=== PATIENT | male | born 1995 | race Caucasian/White ===

== ENCOUNTER 2021-11-10 09:54 | Emergency (ER) | payer MEDICAID, SELFPAY ==
--- NOTE | ~2021-11-10 | XR_ITS ---
EXAMINATION: XR RIBS, RIGHT CLINICAL INFORMATION: Right rib pain. COMPARISON: None TECHNIQUE: 3 views of the right ribs were obtained along with a PA view of the chest. A skin marker was placed over the anteroinferior right ribs. FINDINGS: Lungs are clear. No consolidation, pneumothorax, or pleural effusion. The cardiomediastinal silhouette and pulmonary vasculature are normal. Osseous structures are unremarkable. Ribs are intact. No fractures are identified. XR/XR ribs RT min 3V w CXR1V IMPRESSION: Unremarkable examination.
[2021-11-10 11:03] VITALS: BP 148/82; PULSE 72; RESP 18; TEMP 36.8; O2SAT 99; BMI 21.7
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
[2021-11-10] MEDS: Ketorolac Tromethamine 30 MG/ML VIAL IM (11:44)
[2021-11-10 14:25] VITALS: BP 134/77; PULSE 65; RESP 16; TEMP 37.1; O2SAT 99
== END 2021-11-10 14:37 | disposition home or self-care (01) ==
PROVIDERS: Emergency Provider Emergency Medicine
DX: S20.211A Contusion of right front wall of thorax, initial encounter (principal); W50.0XXA Accidental hit or strike by another person, initial encounter; Y93.83 Activity, rough housing and horseplay; Y92.003 Bedroom of unspecified non-institutional (private) residence as the place of occurrence of the external cause; Y99.9 Unspecified external cause status
CPT/HCPCS: 71101; 96372; 99284; J1885